=== PATIENT | male | born 1990 | race Caucasian/White ===

== ENCOUNTER 2019-10-02 20:33 | Emergency (ER) | payer MEDICAID ==
[~2019-10-02] VITALS: Ht 182.9 cm; Wt 104.3 kg
[2019-10-02 20:33] VITALS: BP_SYST 133
--- NOTE | 2019-10-02 20:33 | NUR ---
Pt brought in by Law enforcment for clearance to book after arresting patient. Pt not involved in traffic collision or trauma of any kind. Pt denies any other medical complaint at this time. Pt denies shortness of breath, nausea, vomiting, diarrhea, chest pain, fever, aches, cough at this time. Pt complians of back pain at this time. Pt resting without distress in custody.
--- NOTE | 2019-10-02 20:33 | NUR ---
ER at Chair side examining patient.
--- NOTE | 2019-10-02 20:33 | NUR ---
Patient to [place] chair to jenifer for evaluation. Law Enforcement chairside.
[2019-10-02 21:00] VITALS: BP_SYST 133
--- NOTE | 2019-10-02 21:00 | NUR ---
Patient given written and verbal discharge instructions and verbalizes understanding. ER MD discussed with patient the results and treatment provided. Patient in stable condition. ID arm band removed. No RX given. Patient educated on pain management and to follow up with PMD. Pain Scale 0/10. Pt discharged in Custody. Opportunity for questions provided and answered.
== END 2019-10-02 21:00 ==
LOC: SED 20:33
DX: Z02.89 Encounter for other administrative examinations (principal); F41.9 Anxiety disorder, unspecified
CPT/HCPCS: 99283